=== PATIENT | female | born 1970 | race African-American/Black ===

== ENCOUNTER 2019-09-05 10:40 | Emergency (ER) | payer OTHER ==
[~2019-09-05] VITALS: Ht 157.5 cm; Wt 74.8 kg
--- NOTE | 2019-09-05 10:57 | NUR ---
ED Nurse Note: Pt walked into ED for pain r/t sickle cell disease. She has pain in shoulder and neck 12/08. Pt states she had SOB 2 days ago, but denies it now. She is set up to monitor. JUAN C has seen patient.
[2019-09-05 10:59] VITALS: BP 128/81
[2019-09-05] MEDS ORDERED: Morphine Sulfate 4mg/ml Inj (IV USE ONLY) IVP ONE (11:15)
--- NOTE | 2019-09-05 11:34 | Diagnostic Imaging Report ---
EXAM: XR Chest, 1 View CLINICAL HISTORY: Chest pain TECHNIQUE: Frontal view of the chest. COMPARISON: No relevant prior studies available. FINDINGS: Lungs: Unremarkable. The lungs appear clear. No focal consolidation. Pleural space: Unremarkable. The costophrenic angles are sharp. No visible pneumothorax. Heart: Unremarkable. No cardiomegaly. Mediastinum: Unremarkable. Bones/joints: Unremarkable. IMPRESSION: No acute findings.
[2019-09-05 11:55] LABS: BASOPHILS % (AUTO) 0.7 % (0.0-2.0); HEMATOCRIT 32.3 % (37.0-47.0); HEMOGLOBIN 11.6 G/DL (12.0-16.0); LYMPHOCYTES % (AUTO) 31.2 % (20.0-45.0); MEAN CORPUSCULAR VOLUME 86 FL (80-99); NEUTROPHILS % (AUTO) 59.2 % (45.0-75.0); PLATELET COUNT 130 K/UL (150-450); RED BLOOD COUNT 3.77 M/UL (4.20-5.40); RED CELL DISTRIBUTION WIDTH 14.1 % (11.6-14.8); WHITE BLOOD COUNT 8.1 K/UL (4.8-10.8)
[2019-09-05 12:00] LABS: INR 0.9 (0.9-1.1)
[2019-09-05 12:01] LABS: ANION GAP 7 mmol/L (5-15); BLOOD UREA NITROGEN 14 mg/dL (7-18); CALCIUM 8.4 MG/DL (8.5-10.1); CARBON DIOXIDE 30 MMOL/L (21-32); CHLORIDE 104 MMOL/L (98-107); CREATININE 0.8 MG/DL (0.55-1.30); POTASSIUM 2.9 MMOL/L (3.5-5.1); SODIUM 141 MMOL/L (136-145)
[2019-09-05 12:13] LABS: ALANINE AMINOTRANSFERASE 16 U/L (12-78); ALBUMIN/GLOBULIN RATIO 1.5 (1.0-2.7); ALKALINE PHOSPHATASE 46 U/L (46-116); ASPARTATE AMINO TRANSFERASE 12 U/L (15-37); BILIRUBIN,TOTAL 0.7 MG/DL (0.2-1.0)
[2019-09-05] MEDS ORDERED: Ketorolac 30mg Inj ONE (13:20)
[2019-09-05] MEDS ORDERED: Methocarbamol 750mg tab ORAL ONE (13:30)
[2019-09-05] MEDS ORDERED: Ketorolac 30mg Inj IV ONE (13:30)
[2019-09-05] MEDS ORDERED: ROBAXIN-750750 MG PO (13:49)
[2019-09-05] MEDS ORDERED: IBUPROFEN600 M1 ORAL (13:49)
[2019-09-05] MEDS ORDERED: LIDODERM700 M1 TOPIC (13:49)
[2019-09-05] MEDS ORDERED: ACETAMINOPHEN-1 EAC1 ORAL (13:49)
[2019-09-05 14:00] VITALS: BP 122/78
--- NOTE | 2019-09-05 14:00 | NUR ---
ER DISCHARGE NOTE: Patient is cleared to be discharged per ERMD, pt is aox4, on room air, with stable vital signs. pt was given dc and prescription instructions, pt was able to verbalize understanding, pt id band and iv site removed without complications. pt is able to ambulate with steady gait. pt took all belongings.
--- NOTE | 2019-09-05 14:21 | Emergency Room Report ---
History of Present Illness General Chief Complaint: Pain Source: Patient Present Illness HPI 49-year-old female presents the ED complaining of upper back and shoulder pain x3 days. Throbbing, 10 out of 10, nonradiating. Worse with deep breaths. Denies fevers or chills. Denies cough. States that she does have history of sickle cell but has not had a crisis in many years. States her crisis used to present mostly in the arms, never in the chest and back. No other aggravating relieving factors. Denies any other associated symptoms Allergies: Coded Allergies: PENICILLINS (Verified Allergy, Unknown, 09/05/19) COVID-19 Screening Contact w/high risk pt: No Recent Travel to affected area: No Experienced COVID-19 symptoms?: Yes COVID-19 symptoms experienced: Shortness of Breath COVID-19 Testing performed RADIO EQUIPMENT REPAIRER: No Patient History Past Medical History: other - sickle cell Past Surgical History: none Pertinent Family History: none Social History: Denies: smoking, alcohol use, drug use Last Menstrual Period: 07/2019 Now: No Immunizations: UTD Reviewed Nursing Documentation: PMH: Agreed; PSxH: Agreed Nursing Documentation-PMH Past Medical History: No History, Except For Review of Systems All Other Systems: negative except mentioned in HPI Physical Exam Vital Signs Date Time Temp Pulse Resp B/P (MAP) Pulse Ox O2 Delivery O2 Flow Rate FiO2 09/05/19 10:47 98.1 86 20 124/82 (96) 98 Room Air Sp02 EP Interpretation: reviewed, normal General Appearance: no apparent distress, alert, GCS 15, non-toxic Head: normocephalic, atraumatic Eyes: bilateral eye normal inspection, bilateral eye PERRL ENT: hearing grossly normal, normal pharynx, no angioedema, normal voice Neck: full range of motion, supple/symm/no masses, tender lateral Respiratory: chest non-tender, lungs clear, normal breath sounds, speaking full sentences Cardiovascular #1: regular rate, rhythm, no edema Cardiovascular #2: 2+ carotid (R), 2+ carotid (L), 2+ radial (R), 2+ radial (L) , 2+ dorsalis pedis (R), 2+ dorsalis pedis (L) Gastrointestinal: normal bowel sounds, non tender, soft, non-distended, no guarding, no rebound Rectal: deferred Genitourinary: normal inspection, no CVA tenderness Musculoskeletal: back normal, normal range of motion, gait/station normal, tender - trapezius bilaterally. bilateral shoudler pain Neurologic: alert, motor strength/tone normal, oriented x3, sensory intact, responsive, speech normal Psychiatric: judgement/insight normal, memory normal, mood/affect normal, no suicidal/homicidal ideation Reflexes: 3+ bicep (R), 3+ bicep (L), 3+ tricep (R), 3+ tricep (L), 3+ knee (R) , 3+ knee (L) Skin: no rash Lymphatic: no adenopathy Medical Decision Making Diagnostic Impression: Primary Impression: Muscle strain ER Course Hospital Course 49-year-old female presents with rib pain, upper back and shoulder pain. History of sickle cell Differential diagnoses include: DC/ACS, sickle pain crisis, muscle strain Clinical course Patient placed on stretcher. After initial history and physical I ordered labs , EKG, chest x-ray, pain meds. labs reviewed- all electrolytes normal, troponins negative, no leukocytosis, hemoglobin/hematocrit stable, no leukocytosis EKG - NSR no acute ischemic changes interpretd by me Chest x-ray-no cardiomegaly, no rib fracture, no pneumothorax, no acute process I discussed findings with patient. Normal EKG, negative troponin. Vitals stable. Normal hemoglobin. Unlikely sickle cell crisis. Unlikely cardiac. Presentation more consistent with muscular pain. Given Toradol, Robaxin, Lidoderm in ED. Safe for discharge for close outpatient follow-up. I. I feel this is a highly complex case requiring extensive working including EKG/Rhythm strip, Xray/CT/US, Blood/urine lab work, repeat exams while in ED, and administration of strong opiates/narcotics for pain control, admission to hospital or close patient follow up. Diagnosis - muscle strain Stable and discharged to home with Rx Motrin, Robaxin, Lidoderm, Tylneol #3. Instructed to followup with PMD. Return to ED if symptoms recur or worsen Labs Test 09/05/19 11:18 White Blood Count 8.1 K/UL (4.8-10.8) Red Blood Count 3.77 M/UL (4.20-5.40) Hemoglobin 11.6 G/DL (12.0-16.0) Hematocrit 32.3 % (37.0-47.0) Mean Corpuscular Volume 86 FL (80-99) Mean Corpuscular Hemoglobin 30.8 PG (27.0-31.0) Mean Corpuscular Hemoglobin Concent 35.8 G/DL (32.0-36.0) Red Cell Distribution Width 14.1 % (11.6-14.8) Platelet Count 130 K/UL (150-450) Mean Platelet Volume 6.9 FL (6.5-10.1) Neutrophils (%) (Auto) 59.2 % (45.0-75.0) Lymphocytes (%) (Auto) 31.2 % (20.0-45.0) Monocytes (%) (Auto) 8.0 % (1.0-10.0) Eosinophils (%) (Auto) 1.0 % (0.0-3.0) Basophils (%) (Auto) 0.7 % (0.0-2.0) Reticulocyte Count 3.0 % (0.5-2.0) Prothrombin Time 10.1 SEC (9.30-11.50) Prothromb Time International Ratio 0.9 (0.9-1.1) Activated Partial Thromboplast Time 24 SEC (23-33) Sodium Level 141 MMOL/L (136-145) Potassium Level 2.9 MMOL/L (3.5-5.1) Chloride Level 104 MMOL/L (98-107) Carbon Dioxide Level 30 MMOL/L (21-32) Anion Gap 7 mmol/L (5-15) Blood Urea Nitrogen 14 mg/dL (7-18) Creatinine 0.8 MG/DL (0.55-1.30) Estimat Glomerular Filtration Rate > 60 mL/min (>60) Glucose Level 85 MG/DL (74-106) Calcium Level 8.4 MG/DL (8.5-10.1) Total Bilirubin 0.7 MG/DL (0.2-1.0) Aspartate Amino Transf (AST/SGOT) 12 U/L (15-37) Alanine Aminotransferase (ALT/SGPT) 16 U/L (12-78) Alkaline Phosphatase 46 U/L (46-116) Lactate Dehydrogenase 289 U/L (81-234) Troponin I 0.000 ng/mL (0.000-0.056) Pro-B-Type Natriuretic Peptide 941 pg/mL (0-125) Total Protein 6.7 G/DL (6.4-8.2) Albumin 4.0 G/DL (3.4-5.0) Globulin 2.7 g/dL Albumin/Globulin Ratio 1.5 (1.0-2.7) EKG Diagnostic Results Rate: normal Rhythm: NSR ST Segments: no acute changes ASA given to the pt in ED: No Rhythm Strip Diag. Results EP Interpretation: yes Rhythm: NSR, no PVC's, no ectopy Chest X-Ray Diagnostic Results Chest X-Ray Diagnostic Results : Chest X-Ray Ordered: Yes # of Views/Limited/Complete: 1 View Indication: Chest Pain EP Interpretation: Yes Interpretation: no consolidation, no effusion, no pneumothorax, no acute cardiopulmonary disease Impression: No acute disease Electronically Signed by: Electronically signed by Emmett Mondragon MD Last Vital Signs Date Time Temp Pulse Resp B/P (MAP) Pulse Ox O2 Delivery O2 Flow Rate FiO2 09/05/19 11:59 98.1 09/05/19 10:59 76 18 128/81 97 Room Air Status: improved Disposition: HOME, SELF-CARE Condition: Stable Scripts Acetaminophen With Codeine (T#3) (TYLENOL #3 TAB*) Y Tab 1 TAB ORAL Q8H PRN for For Pain, #12 TAB Prov: Emmett Mondragon MD 09/05/19 Lidocaine Patch* (Lidoderm Patch*) 1 Each Adh..patch 1 PATCH TOPIC DAILY, #7 PATCH 0 Refills Patch(es) may remain in place for up to 12 hours in any 24-hour period. Prov: Emmett Mondragon MD 09/05/19 Methocarbamol* (ROBAXIN-750*) 750 Mg Tablet 750 MG PO TID, #21 TAB 0 Refills Prov: Emmett Mondragon MD 09/05/19 Ibuprofen* (MOTRIN*) 600 Mg Tablet 600 MG ORAL Q8H PRN for FOR PAIN, #30 TAB 0 Refills Prov: Emmett Mondragon MD 09/05/19 Referrals: NOT CHOSEN IPA/,REFERRING (PCP) [facility] Patient Instructions: Muscle Strain, [id number] Emmett Mondragon MD Sep 05, 2019 14:21
== END 2019-09-05 14:00 | disposition home or self-care (01) ==
LOC: EMR 11:31
DX: T14.8XXA Other injury of unspecified body region, initial encounter (principal); X58.XXXA Exposure to other specified factors, initial encounter; Y92.9 Unspecified place or not applicable; M54.6 Pain in thoracic spine; M25.519 Pain in unspecified shoulder; Z88.0 Allergy status to penicillin
CPT/HCPCS: 36415; 71045; 80053; 83615; 83880; 84484; 85025; 85044; 85610; 85730; 86850; 86900; 86901; 93005; 96361; 96374; 96375; 99284; J1885; J2270; J7030; J8499

== ENCOUNTER 2020-02-22 20:29 | Emergency (ER) | payer OTHER ==
[~2020-02-22] VITALS: Ht 157.5 cm; Wt 74.4 kg
[~2020-02-22 20:29] MED LIST: ACETAMINOPHEN-1 EAC1 ORAL; IBUPROFEN600 M1 ORAL; LIDODERM700 M1 TOPIC; ROBAXIN-750750 MG PO
--- NOTE | 2020-02-22 20:52 | Emergency Room Report ---
History of Present Illness General Chief Complaint: Skin Rash/Abscess Source: Patient Present Illness HPI Patient presents to emergency department with a painful lesion in her right upper back. She has been taking doxycycline for almost a week. The lesion has not gotten better and is painful. The pain is 10/10 and she is unable to lay back. 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 She denies fevers or chills. She has been taking Motrin and still unable to sleep due to the pain. She was seen previously and told that the core of this lesion was removed. When this was incised before it was done without analgesia and she is reluctant to have it done again. Patient denies diabetes. Patient is a fixed wing aircraft flight engineer but denies exposure to Covid positive contacts. No sore throat, chest pain, palpitations, nausea, vomiting, diarrhea, dysuria, abdominal pain, shortness of breath, joint pain, headache. The patient has SC disease. 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 Last Menstrual Period: 01/30/2020 Now: No : 5 Para: 3 Reviewed Nursing Documentation: PMH: Agreed; PSxH: Agreed Nursing Documentation-PMH Past Medical History: No History, Except For Review of Systems All Other Systems: negative except mentioned in HPI Physical Exam Vital Signs Date Time Temp Pulse Resp B/P (MAP) Pulse Ox O2 Delivery O2 Flow Rate FiO2 02/22/20 20:29 97.2 80 18 125/81 (96) 98 Room Air Sp02 EP Interpretation: reviewed, normal General Appearance: well appearing, no apparent distress, GCS 15, non-toxic Head: normocephalic Eyes: bilateral eye normal inspection, bilateral eye PERRL ENT: other - Wearing a mask Neck: normal inspection, supple Respiratory: normal inspection, lungs clear Cardiovascular #1: regular rate, rhythm Cardiovascular #2: 2+ radial (R) Gastrointestinal: normal inspection Musculoskeletal: gait/station normal Neurologic: alert, grossly normal Psychiatric: mood/affect normal Skin: normal color, other - 3 x 3 cm lesion with fluctuance and mild erythema upper back right side Procedures Incision and Drainage Incision and Drainage : Consent: Verbal Site: Mid upper back Blade Size: 11 I & D Procedure: betadine prep, sterile drapes applied, sterile dressing applied, gauze wick placed Wound Location: back Wound's Depth, Shape: superficial Wound Explored: contaminated - 20 cc of pus expressed with sebaceous material Irrigated w/ Saline (ccs): 20 Anesthesia: Lidocaine w/ Epi Volume Anesthetic (ccs): 4 Patient Tolerated: Well Complications: None Medical Decision Making Diagnostic Impression: Primary Impression: Abscess ER Course Patient presents with an abscess in the right upper back on doxycycline. The diagnosis is clinical and incision and drainage is necessary. There may be an element of cellulitis and Bactrim is indicated. In addition the patient will be treated with Percocet. Letter will be applied topically. The patient is nontoxic and has insignificant comorbidities. See procedure note. Patient tolerated incision and drainage well. Patient advised to return in 2 days time to have the wick replaced or removed. Because of the size and depth of the lesion this is indicated. We discussed that this may need to be surgically is excised in the future. Patient stable for outpatient observation and treatment. Last Vital Signs Date Time Temp Pulse Resp B/P (MAP) Pulse Ox O2 Delivery O2 Flow Rate FiO2 02/22/20 22:25 97.3 75 18 122/85 100 Room Air Status: improved Disposition: HOME, SELF-CARE Condition: Improved Scripts Hydrocodone Bit/Acetaminophen 5-325* (NORCO 5-325 TABLET*) 1 Each Tablet 1 TAB ORAL Q6H PRN for FOR PAIN, #6 TAB 0 Refills Prov: Fabian Shankar MD 02/22/20 Ibuprofen* (MOTRIN*) 600 Mg Tablet 600 MG ORAL Q6H PRN for FOR PAIN, #16 TAB 0 Refills Prov: Fabian Shankar MD 02/22/20 Trimethoprim/Sulfamethoxazole 160/800* (BACTRIM DS TABLET*) 1 Each Tablet 1 TAB ORAL Q12H, #14 TAB 0 Refills Prov: Fabian Shankar MD 02/22/20 Fabian Shankar MD Feb 22, 2020 20:52
[2020-02-22 21:00] VITALS: BP 125/81
[2020-02-22] MEDS ORDERED: Bactrim-DS 1 tab ORAL ONE (21:00)
[2020-02-22] MEDS ORDERED: Lidocaine 1% 10mg/ml/Epi 0.005mg/ml 10ml INJ ONE (21:00)
[2020-02-22] MEDS ORDERED: oxyCODONE HCL/Acetaminophen 5/325mg ORAL ONE (21:00)
[2020-02-22] MEDS ORDERED: LET 3ml Soln TOPIC ONE (21:00)
--- NOTE | 2020-02-22 21:00 | NUR ---
ED Nurse Note: Patient walked into ED for c/o severe pain/pressure due to abscess of R shoulder/back area. Patient states she had the abscess drained months ago, but over the past few days it has returned. 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 She is aaox4, breathing is normal and unlabored. No fever, chills, SOB.
--- NOTE | 2020-02-22 22:00 | NUR ---
ED Nurse Note: JUAN C Shankar performed I&D. Patient tolerated well. JOED packed abscess s/p I&D with packing strips. No complications.
--- NOTE | 2020-02-22 22:10 | NUR ---
ED Nurse Note: Patient states she feels relief after I&D. 05/10 pain noted at this time.
[2020-02-22] MEDS ORDERED: BACTRIM DS TAB1 EAC1 ORAL (22:11)
[2020-02-22] MEDS ORDERED: NORCO 5-325 TA1 EAC1 ORAL (22:11)
[2020-02-22] MEDS ORDERED: IBUPROFEN600 M1 ORAL (22:11)
[2020-02-22 22:25] VITALS: BP 122/85
--- NOTE | 2020-02-22 22:25 | NUR ---
ER DISCHARGE NOTE: Patient is cleared to be discharged per ERMD, pt is aox4, on room air, with stable vital signs. pt was given dc and prescription instructions, pt was able to verbalize understanding, pt id band removed. pt is able to ambulate with steady gait. pt took all belongings.
== END 2020-02-22 22:25 | disposition home or self-care (01) ==
LOC: EMR 21:03
DX: L02.212 Cutaneous abscess of back [any part, except buttock and flank] (principal); Z88.0 Allergy status to penicillin
CPT/HCPCS: 99283

== ENCOUNTER 2020-02-24 12:33 | Emergency (ER) | payer OTHER ==
[~2020-02-24] VITALS: Ht 157.5 cm; Wt 74.4 kg
[~2020-02-24 12:33] MED LIST changes: +BACTRIM DS TAB1 EAC1 ORAL; +NORCO 5-325 TA1 EAC1 ORAL
[2020-02-24 13:08] VITALS: BP 114/68
--- NOTE | 2020-02-24 13:20 | Emergency Room Report ---
History of Present Illness General Chief Complaint: Wound Recheck/Suture Removal Source: Patient Present Illness HPI 49 YO female presents to the ED c/o 11/07 pain, tenderness and retained wound packing in a open wound of the upper back x 3 days. Pt. reports she has been taking oral abx as rx'd. She reports she is here to have packing removed. Patient is also reporting that she was told that she would receive an antibiotic ointment at today's visit as at her last visit she had packing placed and was not Rx'd any. Patient states she was given 6 [place]'s for which she is already gone through. She denies fevers or chills. She reports being up-to-date with vaccinations. No other aggravating or relieving factors. Patient does report some continued drainage. She states she has not obtained a follow-up provider for her symptoms. Allergies: Coded Allergies: PENICILLINS (Verified Allergy, Unknown, 09/05/19) COVID-19 Screening Contact w/high risk pt: No Recent Travel to affected area: No Experienced COVID-19 symptoms?: No COVID-19 symptoms experienced: Shortness of Breath COVID-19 Testing performed ADMINISTRATIVE SUPPORT MANAGER: No Patient History Limited by: language barrier Past Medical History: none Past Surgical History: none Pertinent Family History: none Now: No Reviewed Nursing Documentation: PMH: Agreed; PSxH: Agreed Review of Systems All Other Systems: negative except mentioned in HPI Physical Exam Vital Signs Date Time Temp Pulse Resp B/P (MAP) Pulse Ox O2 Delivery O2 Flow Rate FiO2 02/24/20 12:41 98.8 91 19 105/65 (78) 98 Room Air Sp02 EP Interpretation: reviewed, normal General Appearance: no apparent distress, alert, GCS 15, non-toxic Head: normocephalic, atraumatic Eyes: bilateral eye normal inspection, bilateral eye PERRL ENT: hearing grossly normal, normal voice Neck: full range of motion Respiratory: lungs clear, normal breath sounds, speaking full sentences Cardiovascular #1: regular rate, rhythm Musculoskeletal: normal range of motion, gait/station normal, tender - recently incised packed abscess Neurologic: alert, motor strength/tone normal, oriented x3, sensory intact, responsive, speech normal Psychiatric: judgement/insight normal Skin: other - healing previously incised abscess of the mid-upper back. Still with some bloody/purulent dc. Lymphatic: no adenopathy Medical Decision Making PA Attestation Dr. Mondragon is my supervising Physician whom patient management has been discussed with. Diagnostic Impression: Primary Impression: Encounter for dressing change or suture removal ER Course 49 YO female presents to the ED c/o 11/07 pain, tenderness and retained wound packing in a open wound of the upper back x 3 days. Pt. reports she has been taking oral abx as rx'd. She reports she is here to have packing removed. Patient is also reporting that she was told that she would receive an antibiotic ointment at today's visit as at her last visit she had packing placed and was not Rx'd any. Patient states she was given 6 [place]'s for which she is already gone through. She denies fevers or chills. She reports being up-to-date with vaccinations. No other aggravating or relieving factors. Patient does report some continued drainage. She states she has not obtained a follow-up provider for her symptoms. Ddx considered but are not limited to cellulitis, abscess, cystic acne, necrotizing fasciitis, insect bite. Vital signs: are WNL, pt. is afebrile H&PE are most consistent with healing previously incised abscess of the mid- upper back. ORDERS: none required at this time, the diagnosis is clinical ED INTERVENTIONS: -wound packing removed. -Sterile dressing applied. d/w pt. to continue taking po abx and to look for signs of infection . - [place] PO DISCHARGE: At this time pt. is stable for d/c to home. Will provide printed patient care instructions, and any necessary prescriptions. Care plan and follow up instructions have been discussed with the patient prior to discharge. Last Vital Signs Date Time Temp Pulse Resp B/P (MAP) Pulse Ox O2 Delivery O2 Flow Rate FiO2 02/24/20 13:08 98.8 76 18 114/68 97 Room Air Disposition: HOME, SELF-CARE Condition: Stable Scripts Bacitracin (Bacitracin) 28.4 Gm Oint...g. 1 APPLIC TOPIC THREE TIMES A DAY, #28.3 GM Prov: Avis Zapata 02/24/20 Hydrocodone Bit/Acetaminophen 5-325* (NORCO 5-325 TABLET*) 1 Each Tablet 1 TAB ORAL Q6H PRN for FOR PAIN, #12 TAB 0 Refills Prov: Avis Zapata 02/24/20 Patient Instructions: Wound Check Additional Instructions: Take medications as directed. Follow up with a Primary Care Provider in 3-5 days, even if your symptoms have resolved. Return sooner to ED if new symptoms occur, or current symptoms become worse. - Please note that this Emergency Department Report was dictated using NeurOpapplication integration specialist technology software, occasionally this can lead to erroneous entry secondary to interpretation by the dictation equipment. Avis Zapata Feb 24, 2020 13:20
[2020-02-24] MEDS ORDERED: NORCO 5-325 TA1 EAC1 ORAL (13:27)
[2020-02-24] MEDS ORDERED: HYDROcodone/Acetamin 5/325 tab ORAL ONE (13:30)
[2020-02-24] MEDS ORDERED: BACITRACIN15 GM TOPIC (13:50)
[2020-02-24 14:00] VITALS: BP 120/72
== END 2020-02-24 14:01 | disposition home or self-care (01) ==
LOC: EMR 13:36
DX: Z48.01 Encounter for change or removal of surgical wound dressing (principal); L02.212 Cutaneous abscess of back [any part, except buttock and flank]; Z88.0 Allergy status to penicillin
CPT/HCPCS: 99281

== ENCOUNTER 2020-05-18 18:34 | Emergency (ER) | payer OTHER ==
[~2020-05-18] VITALS: Ht 157.5 cm; Wt 73.0 kg
[~2020-05-18 18:34] MED LIST changes: +BACITRACIN15 GM TOPIC
--- NOTE | 2020-05-18 18:55 | NUR ---
ED Nurse Note: pt arrived for frequency in urination starting last night, low abd pain, hematuria, burning with urination. pt states she has been drinking water and staying hydrated. urine sent to lab. pt in bed, stable, will continue to monitor.
[2020-05-18 18:59] VITALS: BP 118/78
[2020-05-18 19:05] LABS: APPEARANCE,URINE VERY CLOUDY; BILIRUBIN, URINE NEGATIVE (NEGATIVE); COLOR,URINE PALE YELLOW; GLUCOSE, URINE (UA) NEGATIVE (NEGATIVE); KETONES,URINE NEGATIVE (NEGATIVE); LEUKOCYTE ESTERASE ,URINE 3+ (NEGATIVE); NITRITE,URINE NEGATIVE (NEGATIVE); PH,URINE 6 (4.5-8.0); PROTEIN,URINE 3+ (NEGATIVE); UROBILINOGEN,URINE NORMAL MG/DL (0.0-1.0)
--- NOTE | 2020-05-18 19:10 | NUR ---
ED Nurse Note: Report received from offgoing nurse ANDREW gutierrez. Patient in bed, AOX4, stable. C/o lower abdominal pressure and spasm, urinary frequency. Denies any discharge.
--- NOTE | 2020-05-18 19:25 | Emergency Room Report ---
History of Present Illness General Chief Complaint: Female Urogenital Problems Source: Patient Present Illness HPI 51-year-old female with history of sickle cell trait and chronic back pain taking hydrocodone here complaining of urinary frequency and hematuria that started yesterday. Patient reports that she noticed droplets in of blood in her urine however denies any gross hematuria. Denies any fever chills, nausea vomiting, low back pain with radiation to. Has an appointment with primary doctor in 5 days. Denies taking any medication for sickle cell. Vital signs are within normal limits. Denies history of renal stones. No CVA tenderness noted. Denies vaginal discharge. 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 Patient History Last Menstrual Period: 05/14/20 Now: No Immunizations: UTD Reviewed Nursing Documentation: PMH: Agreed; PSxH: Agreed Nursing Documentation-PMH Past Medical History: No History, Except For Review of Systems All Other Systems: negative except mentioned in HPI Physical Exam Vital Signs Date Time Temp Pulse Resp B/P (MAP) Pulse Ox O2 Delivery O2 Flow Rate FiO2 05/18/20 18:36 97.9 93 16 120/80 (93) 99 Room Air Sp02 EP Interpretation: reviewed, normal General Appearance: no apparent distress, alert, GCS 15, non-toxic Head: normocephalic, atraumatic Eyes: bilateral eye normal inspection, bilateral eye PERRL ENT: hearing grossly normal, normal voice Neck: supple Respiratory: no retraction Cardiovascular #1: regular rate, rhythm, no edema Gastrointestinal: no mass Rectal: deferred Genitourinary: no CVA tenderness Musculoskeletal: back normal Neurologic: alert, motor strength/tone normal, oriented x3, sensory intact, responsive, speech normal Psychiatric: judgement/insight normal, memory normal, mood/affect normal, no suicidal/homicidal ideation Skin: no rash Lymphatic: no adenopathy Medical Decision Making PA Attestation All diagnoses and treatment plans were reviewed and discussed with my supervising physician Dr. Lynch Diagnostic Impression: Primary Impression: UTI (urinary tract infection) ER Course 51-year-old female with history of sickle cell trait and chronic back pain taking hydrocodone here complaining of urinary frequency and hematuria that started yesterday. Patient reports that she noticed droplets in of blood in her urine however denies any gross hematuria. Denies any fever chills, nausea vomiting, low back pain with radiation to. Has an appointment with primary doctor in 5 days. Denies taking any medication for sickle cell. Vital signs are within normal limits. Denies history of renal stones. No CVA tenderness noted. Denies vaginal discharge. Denies Ddx considered but are not limited to: UTI, pyelonephritis, urinary incontinence, prolapsed bladder, renal stone Vital signs: are WNL, pt. is afebrile H&PE are most consistent with: UTI ORDERS: UA, urine cx, Macrobid ED INTERVENTIONS: None required at this time. DISCHARGE: At this time pt. is stable for d/c to home. Will provide printed patient care instructions, and any necessary prescriptions. Care plan and follow up instructions have been discussed with the patient prior to discharge. Advised patient worsening symptoms, pelvic pain which patient denies at this time return to emergency room. Last Vital Signs Date Time Temp Pulse Resp B/P (MAP) Pulse Ox O2 Delivery O2 Flow Rate FiO2 05/18/20 18:59 88 18 118/78 100 Room Air 05/18/20 18:36 97.9 Disposition: HOME, SELF-CARE Condition: Stable Scripts Nitrofurantoin Monohyd/M-Cryst* (MACROBID 100 MG*) 100 Mg Capsule 100 MG ORAL EVERY 12 HOURS for 7 Days, #14 CAP Prov: Akira Sauceda 05/18/20 Patient Instructions: Urinary Tract Infection Additional Instructions: Take medication as directed, follow primary care provider, if worsening symptoms return to the emergency room Akira Sauceda May 18, 2020 19:25
[2020-05-18] MEDS ORDERED: NITROFURANTOIN100 M2 ORAL (19:28)
--- NOTE | 2020-05-18 19:34 | NUR ---
ER DISCHARGE NOTE: Patient is cleared to be discharged per ERMD, pt is aox4, on room air, with stable vital signs. pt was given dc and prescription instructions, pt was able to verbalize understanding, pt id band removed without complications. pt is able to ambulate with steady gait. pt took all belongings.
== END 2020-05-18 19:35 | disposition home or self-care (01) ==
LOC: EMR 18:55
DX: N39.0 Urinary tract infection, site not specified (principal); D57.3 Sickle-cell trait; Z88.0 Allergy status to penicillin
CPT/HCPCS: 81003; 87086; 87181; 99283